=== PATIENT | male | born 1960 | race Caucasian/White ===

== ENCOUNTER 2024-01-25 11:48 | Outpatient (CLI) | payer MEDICARE, BC, SELFPAY | END 2024-01-25 11:49 | disposition home or self-care (01) | PROVIDERS: PCP Family Medicine; Visit Provider Family Medicine | DX: E78.5 Hyperlipidemia, unspecified (principal); I10 Essential (primary) hypertension; E13.9 Other specified diabetes mellitus without complications; Z12.5 Encounter for screening for malignant neoplasm of prostate; Z13.0 Encounter for screening for diseases of the blood and blood-forming organs and certain disorders involving the immune mechanism | CPT/HCPCS: 80048; 80061; G0103 ==

== ENCOUNTER 2024-03-29 19:04 | Outpatient (CLI) | payer MEDICARE, BC, SELFPAY ==
--- NOTE | 2024-04-18 08:51 | W.PM.SLEEP ---
Sleep Study Details Details Interpreting Provider: Alicia Date of Sleep Study: 03/29/24 Sleep Study Details: STUDY TYPE:? Home unattended ? BMI:? 35 ORDERING PROVIDER:? Alicia INDICATION:? Concern about sleep apnea ? SLEEP SUMMARY:? 388 minutes monitored RESPIRATORY SUMMARY:? AHI 43.5 Low oxygen 81 17.1% of study oxygen less than 90% Snoring 71.2% PERIODIC LIMB MOVEMENTS OF SLEEP:? Not recorded CARDIAC:? Range 45-102, mean 70.4 IMPRESSION:? Severe obstructive sleep apnea RECOMMENDATION: Treatment options include weight loss, AutoSet CPAP and/or airway expansion surgery. Would favor trial of CPAP.
== END 2024-03-29 19:05 | disposition home or self-care (01) ==
LOC: SLEEP 19:05
PROVIDERS: PCP Family Medicine; Visit Provider Otolaryngology
DX: G47.33 Obstructive sleep apnea (adult) (pediatric) (principal)
CPT/HCPCS: 95806

== ENCOUNTER 2024-04-18 10:36 | Outpatient (CLI) | payer MEDICARE, BC, SELFPAY | END 2024-04-18 10:37 | disposition home or self-care (01) | LOC: LKVREF 10:37 | PROVIDERS: PCP Family Medicine; Visit Provider Family Medicine | DX: E78.5 Hyperlipidemia, unspecified (principal); I10 Essential (primary) hypertension; E13.9 Other specified diabetes mellitus without complications | CPT/HCPCS: 80061 ==

== ENCOUNTER 2024-10-17 16:06 | Outpatient (CLI) | payer MEDICARE, BC, SELFPAY | END 2024-10-17 16:07 | disposition home or self-care (01) | LOC: LKVREF 16:13 | PROVIDERS: PCP Family Medicine; Visit Provider Family Medicine | DX: E13.65 Other specified diabetes mellitus with hyperglycemia (principal); Z79.4 Long term (current) use of insulin; Z79.84 Long term (current) use of oral hypoglycemic drugs | CPT/HCPCS: 84681 ==

== ENCOUNTER 2025-02-13 15:39 | Outpatient (CLI) | payer MEDICARE, BC, SELFPAY | END 2025-02-13 15:40 | disposition home or self-care (01) | PROVIDERS: PCP Family Medicine; Visit Provider Family Medicine | DX: I10 Essential (primary) hypertension (principal); Z12.5 Encounter for screening for malignant neoplasm of prostate | CPT/HCPCS: 80048; G0103 ==